=== PATIENT | male | born 1970 | race Caucasian/White ===

== ENCOUNTER → 2018-02-25 | Outpatient (CLI) | payer BC, OTHER | LOC: PUL 05:49 | DX: R06.00 Dyspnea, unspecified (principal) ==

== ENCOUNTER 2019-11-07 20:48 | Inpatient (IN) | payer BC, OTHER ==
[~2019-11-07] VITALS: Ht 177.8 cm; Wt 74.8 kg
[2019-11-07 20:52] VITALS: BP 126/73
[2019-11-07] MEDS ORDERED: PROTONIX40 M3 PO (22:06)
[2019-11-07] MEDS ORDERED: MELOXICAM15 MG PO (22:06)
[2019-11-07 22:47] VITALS: BP 131/83
[2019-11-08] VITALS: BP 114/77
[2019-11-08 01:52] LABS: HEMATOCRIT 39.7 % (42.0-52.0); HEMOGLOBIN 13.1 gm/dL (14.0-18.0); MCH 30.6 pg (26.0-34.0); MCV 92.5 fL (80.0-100.0); RBC 4.29 mil/uL (4.50-6.00); RDW 13.7 % (10.5-14.5); WBC 5.5 thou/uL (4.0-11.0)
[2019-11-08 01:56] LABS: CALCIUM 8.2 mg/dL (8.5-10.1); CREATININE 1.3 mg/dL (0.7-1.3); POTASSIUM 3.6 mmol/L (3.5-5.1)
[2019-11-08 04:06] VITALS: BP 109/67
--- NOTE | 2019-11-08 05:28 | NUR ---
PT IS AN ER ADMIT. PT IS FROM [facility] ER. PT IS ADMITTED WITH NEAR SYNCOPE, BRADYCARDIA WITH BIGEMINY. PT IS STABLE. PT IS ALERT AND ORIENTED WITH NO SIGN OF DISTRESS NOTED IN, SEEN BY NURSE PRACTITIONER. VSS WITH BRADYCARDIA NOTED ON MONITOR. ADMISSION EDUCATION, DATA AND ASSESSMENT COMPLETED. PT DENIES ANY PAIN. SIGNIFICANT OTHER AT BEDSIDE. PT IS STABLE. DENIES ANY FURTHER NEEDS AT THIS TIME.
--- NOTE | 2019-11-08 09:41 | EXE ---
[facility] [address] [place] [address] STRESS ECHOCARDIOGRAM Name: WILLY CINTRON Room #: 219-P ADM IN M.R.#: [id number] Admission: 11/07/19 Attend Phys: Angie Robles Discharge: Date of : 70 Report #: [id number] THIS REPORT FOR: //name// APPROVED REPORT Study performed: 11/08/2019 08:22:34 Exam: Stress Echocardiogram Indication: Bradycardia, chest pressure, bigeminy PVCs Patient Location: Echo lab Stress Nurse: Noa TEAGUE Room #: 219 Status: routine Ht: 5 ft 10 in HR: 43 bpm BP: 109/67 mmHg Rhythm: Sinus Leroy Medical History Medical History: Bradycardia Medications: None Allergies: Amoxycillian Cardiac Risk Factors: None Procedure The patient underwent an Exercise Stress Test using the Walker Protocol. Blood pressure, heart rate, and EKG were monitored. An Echocardiogram was performed by missile technician in four stages in quad fashion. At peak stress, four selected images were obtained and placed side by side with resting images for comparison. Stress Test Details Stress Test: Exercise stress testing was performed using a Walker protocol. HR Resting HR: 43 bpm Max Heart Rate (APMHR): 171 bpm Max HR Achieved: 169 bpm Target HR (85% APMHR): 145 bpm % of APMHR: 98 Recovery HR: 81 bpm HR response to stress: Normal HR response to stress BP Resting BP: 109/67 mmHg Max BP: 122/74 mmHg Recovery BP: 122/74 mmHg [facility] [address] [place] [address] STRESS ECHOCARDIOGRAM Name: WILLY CINTRON Room #: 219-P [facility] IN ..#: [id number] Admission: 11/07/19 Attend Phys: Angie Robles Discharge: Date of : 70 Report #: [id number] BP response to stress: Normal blood pressure response to stress. ECG Resting ECG: Sinus Bradycardia Stress ECG: Sinus Rhythm ST Change: Normal Maximum ST Deviation: 0 mm Arrhythmia: VPC's Recovery ECG: Sinus Rhythm Recovery ST Change: Normal Recovery ST Deviation: 0 mm Recovery Arrhythmia: None Clinical Reason for Termination: Maximal effort Stress Symptoms: Chest pain during stage 3. Frequent PVCs. Exercise duration: 12 min sec Highest Stage Achieved: Stage 4: 4.2 mph at 16% grade. Exercise capacity: 13.70 METs Angina Score: None Stress ECG Conclusion Clinical: Non-ischemic ECG: Non-ischemic Geronimo Treadmill Score is 12.0 which is Low risk. Pre-Stress Echo The resting Echocardiogram showed normal left ventricular contractility with an estimated Ejection Fraction of about 55%. The resting echocardiogram demonstrated normal wall motion in all wall segments. Post-Stress Echo The stress Echocardiogram showed normal left ventricular contractility with an estimated Ejection Fraction of about 65-70%. Compared to rest, there were no stress-induced wall motion abnormalities. Clinical No clinical or ECG evidence for ischemia. Normal chronotropic competance Conclusion Clinical Response: Non-ischemic Exercise Capacity: Superior Stress ECG Response: Non-ischemic [facility] [address] [place] [address] STRESS ECHOCARDIOGRAM Name: WILLY CINTRON Room #: 219-P ADM IN M.R.#: [id number] Admission: 11/07/19 Attend Phys: Angie Robles Discharge: Date of : 70 Report #: [id number] Stress Echo Images: Non-ischemic The left ventricle is normal in size and wall thickness in both the rest and stress images. Normal stress echocardiogram with maximal exercise stress. Other Information Study Quality: Good <Conclusion> The left ventricle is normal in size and wall thickness in both the rest and stress images. Normal stress echocardiogram with maximal exercise stress. <ELECTRONICALLY SIGNED> By: Prosper Taylor MD, FACC 11/08/19939 9 9 Prosper Taylor MD, FAC /INF
[2019-11-08 12:24] VITALS: BP 99/68
[2019-11-08] MEDS ORDERED: ASPIR 8181 MG PO (13:54)
[2019-11-08 14:35] VITALS: BP 99/68
--- NOTE | 2019-11-08 15:23 | NUR ---
PT CARE ASSUMED APPROX 0700. ASSESSMENT CHARTED. DENIES PAIN AND SOA. VSS. UP WITH STEADY GAIT. FAMILY AT BEDSIDE. PT UNEVENTFULLY COMPLETED DIAGNOSTIC STUDY THIS SHIFT. NO ABNORMALITIES NOTED SO CARDIOLOGY AND DR SEALS APPROVED APPROVED FOR DISCHARGE AT THIS TIME. DISCHARGE EDUCATION DONE WITH PT AND HIS SPOUSE. BOTH DENY QUESTIONS OR CONCERNS REGARDING POST HOSPITAL CARES AND/OR F/U. ALL BELONGINGS IN PT POSSESSION. IV OUT, TELE BOX OFF. PT WANTED TO AMBULATE TO TRANSPORTATION. LEAVING UNIT AT THIS TIME.
--- NOTE | 2019-11-08 17:10 | EKG ---
[place] [address] [facility] [place] [address] ELECTROCARDIOGRAM REPORT Name: WILLY CINTRON Room #: 219-P [facility] IN M.R.#: [id number] Admission: 11/07/19 Attend Phys: Tuyet Crooks MD Discharge: 11/08/19 Date of : 70 Report #: [id number] THIS REPORT FOR: //name// [facility] ED Test Date: 2019-11-07 Test Time: 20:52:59 Pat Name: WILLY CINTRON Department: Room: 219 Gender: M Refrigeration [facility] 1970 Requested By: Willian Melendrez Order Number: [id number] MD: Prosper Taylor Measurements Intervals [place] Rate: 69 P: 27 GA: 159 QRS: 33 QRSD: 87 T: 47 QT: 384 QTc: 412 Interpretive Statements Sinus rhythm Frequent premature ventricular complexes No previous ECG available for comparison Electronically Signed On 11-08-2019 17:10:16 VETERINARY NURSE by Prosper Taylor [email or web address] <ELECTRONICALLY SIGNED> By: Prosper Taylor MD, [facility] 11/08/191709 51 51 Prosper Taylor MD, FACC /EPI
--- NOTE | 2019-11-08 17:12 | EKG ---
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
== END 2019-11-08 16:03 | disposition home or self-care (01) | DRG 310 ==
LOC: ER 20:48 → EROBS 22:39 → 2N 22:39
PROVIDERS: Nurse Practitioner Family; ADMIT Hospitalist
DX: R00.1 Bradycardia, unspecified (principal); K21.9 Gastro-esophageal reflux disease without esophagitis; J45.909 Unspecified asthma, uncomplicated; R00.8 Other abnormalities of heart beat; K40.90 Unilateral inguinal hernia, without obstruction or gangrene, not specified as recurrent; Z79.82 Long term (current) use of aspirin; Z79.899 Other long term (current) drug therapy; Z88.1 Allergy status to other antibiotic agents
CPT/HCPCS: 10081

== ENCOUNTER → 2021-08-28 | Outpatient (CLI) | payer BC, OTHER ==
[~2021-08-28] MED LIST: ASPIR 8181 MG PO; MELOXICAM15 MG PO; PROTONIX40 M3 PO
== END ==
LOC: RAD 12:20
PROVIDERS: ATTEND Pediatrics
DX: R91.8 Other nonspecific abnormal finding of lung field (principal); R06.00 Dyspnea, unspecified